=== PATIENT | male | born 1950 | race Caucasian/White ===

== ENCOUNTER → 2017-08-19 | Outpatient (CLI) | payer MEDICARE ==
[~2017-08-19] MED LIST: MEDROL DOSEPAK4 MG PO; TAGAMET400 MG PO
== END | disposition home or self-care (01) ==
LOC: US 08:19
DX: K76.0 Fatty (change of) liver, not elsewhere classified (principal); R16.0 Hepatomegaly, not elsewhere classified

== ENCOUNTER → 2019-10-18 | Day surgery (SDC) | payer MEDICARE ==
[~2019-10-18] MED LIST changes: +BISOPROLOL FUMAR5 MG PO; +CALCIUM500 M1 PO; +FLAXSEED1000 MG PO; +GLUCOPHAGE XR750 MG PO; +HUMALOG100 UNIT/1 SQ; +JARDIANCE25 MG PO; +LANTUS SOL100 UNIT/1 SQ; +LOSARTAN-HCTZ1 EAC1 PO; +SIMVASTATIN40 MG PO; +VITAMIN D-32000 UNI1 PO; +VITAMIN E200 UNI1 PO
[2019-10-18 07:16] VITALS: BP 113/68
[2019-10-18 08:15] VITALS: BP 106/61
[2019-10-18 08:29] VITALS: BP 99/54
[2019-10-18 08:45] VITALS: BP 117/72
== END | disposition home or self-care (01) ==
LOC: SDC 10-14 08:00
DX: Z12.11 Encounter for screening for malignant neoplasm of colon (principal); K22.70 Barrett's esophagus without dysplasia; K57.30 Diverticulosis of large intestine without perforation or abscess without bleeding; K64.0 First degree hemorrhoids; M19.90 Unspecified osteoarthritis, unspecified site; E11.9 Type 2 diabetes mellitus without complications; I10 Essential (primary) hypertension; Z98.890 Other specified postprocedural states; Z87.891 Personal history of nicotine dependence; Z86.010 Personal history of colon polyps; Z72.89 Other problems related to lifestyle
CPT/HCPCS: 00813; 43239; G0105